=== PATIENT | female | born 1965 | race Caucasian/White ===

== ENCOUNTER 2024-03-03 12:12 | Inpatient (IN) | payer MEDICARE, OTHER ==
[~2024-03-03] VITALS: Ht 162.6 cm; Wt 83.9 kg
[2024-03-03] MEDS ORDERED: MAG HYDROX/AL HYDROX/SIMETH 30 ML UDC PO PRN (23:30)
[2024-03-03] MEDS ORDERED: ACET-2605 PO (23:30)
[2024-03-03] MEDS ORDERED: ACETAMINOPHEN 325 MG TABLET PO PRN (23:30)
[2024-03-03] MEDS ORDERED: DULO30CA2 PO (23:30)
[2024-03-03] MEDS ORDERED: MAGNESIUM HYDROXIDE 30 ML UDC PO PRN (23:30)
[2024-03-03] MEDS ORDERED: ZOLPIDEM TARTRATE 5 MG TABLET PO PRN (23:30)
[2024-03-03] MEDS ORDERED: IBUP200C5 PO (23:39)
[2024-03-03] MEDS ORDERED: OXYB5TAB16 PO (23:41)
[2024-03-03] MEDS ORDERED: PANT20TA17 PO (23:42)
[2024-03-03] MEDS ORDERED: TRAZ-182 PO (23:44)
[2024-03-03] MEDS ORDERED: BUPR100T13 PO (23:45)
[2024-03-04 00:22] VITALS: BP 116/97; TEMP 98.4; O2SAT 97
[2024-03-04] MEDS: BLOOD SUGAR DIAGNOSTIC 1 EACH STRIP IN ONE (00:46)
[2024-03-04 02:34] VITALS: BP 115/70; TEMP 98; O2SAT 98
[2024-03-04 07:10] LABS: BASOPHILS % (AUTO) 0.9 % (0.0-2.0); EOSINOPHILS # (AUTO) 0.1 K/uL (0.0-0.7); EOSINOPHILS % (AUTO) 2.7 % (0.0-6.0); HEMATOCRIT 36 % (33-45); HEMOGLOBIN 12.2 g/dL (11.5-14.8); LYMPHOCYTES # (AUTO) 2.2 K/uL (0.8-4.8); MEAN CORPUSCULAR HEMOGLOBIN 30 PG (26.0-33.0); MEAN CORPUSCULAR HGB CONC 34 g/dl (31.0-36.0); MEAN CORPUSCULAR VOLUME 87 fL (82-100); MONOCYTES # (AUTO) 0.4 K/uL (0.1-1.30); MONOCYTES % (AUTO) 8.3 % (2.0-12.0); NEUTROPHILS # (AUTO) 2.2 K/uL (1.8-8.9); NEUTROPHILS % (AUTO) 44.1 % (43.0-81.0); PLATELET COUNT (AUTO) 276 K/uL (150-450); RED CELL DISTRIBUTION WIDTH 14.1 % (11.5-15.0)
[2024-03-04 07:24] LABS: CALCIUM, SERUM 9.1 mg/dL (8.5-10.1); CREATININE 0.7 mg/dL (0.6-1.3); POTASSIUM 3.2 mmol/L (3.5-5.1)
[2024-03-04] MEDS: PANTOPRAZOLE 40 MG TABLET.DR PO SCH (07:49)
[2024-03-04 08:00] VITALS: BP 128/62; TEMP 98.6; O2SAT 96
[2024-03-04] MEDS: CEPHALEXIN MONOHYDRATE 250 MG CAPSULE PO SCH (09:22)
[2024-03-04] MEDS: OXYBUTYNIN CHLORIDE 5 MG TABLET PO SCH (09:22)
[2024-03-04] MEDS: ESCITALOPRAM OXALATE (10 MG) 10 MG TABLET PO SCH (09:27)
[2024-03-04 16:00] VITALS: BP 121/63; TEMP 98; O2SAT 97
[2024-03-04 20:00] VITALS: BP 124/93; TEMP 98.8; O2SAT 97
[2024-03-04] MEDS: QUETIAPINE FUMARATE 25 MG TABLET PO SCH (21:14)
[2024-03-04] MEDS: POTASSIUM CHLORIDE 20 MEQ TAB.PRT.SR PO ONE (22:07)
[2024-03-05 08:00] VITALS: BP 129/74; TEMP 97.6; O2SAT 98
[2024-03-05 08:02] LABS: CALCIUM, SERUM 8.7 mg/dL (8.5-10.1); CREATININE 0.7 mg/dL (0.6-1.3); POTASSIUM 3.8 mmol/L (3.5-5.1)
[2024-03-05 16:00] VITALS: BP 122/94; TEMP 97.9; O2SAT 98
[2024-03-05 20:28] VITALS: BP 126/79; TEMP 98; O2SAT 97
[2024-03-05] MEDS: QUETIAPINE FUMARATE 25 MG TABLET PO SCH (21:15)
[2024-03-06 08:48] VITALS: BP 138/73; TEMP 97.2; O2SAT 95
[2024-03-06 17:11] VITALS: BP 126/67; TEMP 97.9; O2SAT 95
[2024-03-07 08:00] VITALS: BP 104/86; TEMP 98; O2SAT 96
[2024-03-07] MEDS: ENSURE CLEAR 237 ML LIQUID (MIX BERRY) PO SCH (09:42)
[2024-03-07 16:09] VITALS: BP 125/85; TEMP 97.9; O2SAT 98
[2024-03-07 20:51] VITALS: BP 120/86; TEMP 97.9; O2SAT 97
[2024-03-08 08:00] VITALS: BP 131/89; TEMP 97.8; O2SAT 98
[2024-03-08] MEDS: ESCITALOPRAM OXALATE (10 MG) 10 MG TABLET PO SCH (08:21)
[2024-03-08 16:00] VITALS: BP 131/98; TEMP 98; O2SAT 96
[2024-03-08] MEDS: QUETIAPINE FUMARATE 25 MG TABLET PO SCH (21:40)
[2024-03-09 08:00] VITALS: BP 115/67; TEMP 97.8; O2SAT 97
[2024-03-09] MEDS: LORAZEPAM 1 MG TABLET PO PRN (12:36)
[2024-03-09 16:00] VITALS: BP 121/82; TEMP 98; O2SAT 97
[2024-03-09] MEDS: OLANZAPINE ZYDIS 5 MG TAB.RAPDIS PO ONE (16:24)
[2024-03-09 20:00] VITALS: BP 98/42; TEMP 98.4; O2SAT 97
[2024-03-10 08:25] VITALS: BP 113/69; TEMP 97.4; O2SAT 96
[2024-03-10] MEDS: OLANZAPINE ZYDIS 5 MG TAB.RAPDIS PO SCH (10:36)
[2024-03-10 16:21] VITALS: BP 102/56; TEMP 98; O2SAT 99
[2024-03-10 20:00] VITALS: BP 103/63; TEMP 98.4; O2SAT 97
[2024-03-11 08:00] VITALS: BP 106/70; TEMP 97.6; O2SAT 95
[2024-03-11 16:00] VITALS: BP 125/74; TEMP 98.6; O2SAT 95
[2024-03-11 20:19] VITALS: BP 114/69; TEMP 97.9; O2SAT 96
[2024-03-12 08:00] VITALS: BP 113/80; TEMP 98; O2SAT 94
[2024-03-12 16:00] VITALS: BP 135/73; TEMP 97.9; O2SAT 95
[2024-03-12 20:54] VITALS: BP 130/61; TEMP 98.1; O2SAT 95
[2024-03-13 08:00] VITALS: BP 134/74; TEMP 97.5; O2SAT 100
[2024-03-13 16:00] VITALS: BP 138/71; TEMP 97.5; O2SAT 94
[2024-03-13 20:24] VITALS: BP 111/61; TEMP 97.8; O2SAT 96
[2024-03-14 08:00] VITALS: BP 120/67; TEMP 98.7; O2SAT 99
[2024-03-14] MEDS: ENSURE CLEAR 237 ML LIQUID (MIX BERRY) PO SCH (08:24)
[2024-03-14 16:00] VITALS: BP 108/65; TEMP 98.7; O2SAT 99
[2024-03-14] MEDS: OLANZAPINE ZYDIS 5 MG TAB.RAPDIS PO SCH (16:33)
[2024-03-15 08:00] VITALS: BP 140/55; TEMP 97.7; O2SAT 97
[2024-03-15] MEDS: risperiDONE 1 MG TABLET PO SCH (12:45)
[2024-03-15 16:00] VITALS: BP 133/83; TEMP 97.7; O2SAT 98
[2024-03-15 20:18] VITALS: BP 139/62; TEMP 98.2; O2SAT 98
[2024-03-16 08:00] VITALS: BP 131/91; TEMP 97; O2SAT 98
[2024-03-16 16:00] VITALS: BP 125/88; TEMP 98.4; O2SAT 100
[2024-03-16 20:00] VITALS: BP 131/79; TEMP 98.3; O2SAT 98
[2024-03-17 08:00] VITALS: BP 110/67; TEMP 97.9; O2SAT 98
[2024-03-17] MEDS: risperiDONE 1 MG TABLET PO SCH (16:38)
[2024-03-17 20:00] VITALS: BP 133/89; TEMP 97.8; O2SAT 96
[2024-03-18 08:00] VITALS: BP 126/98; TEMP 97.6; O2SAT 98
[2024-03-18] MEDS ORDERED: RISPERIDONE 0.25 MG TAB.RAPDIS PO SCH (09:00)
[2024-03-18 16:00] VITALS: BP 127/90; TEMP 98.1; O2SAT 97
[2024-03-18] MEDS: RISPERIDONE 1 MG TAB.RAPDIS PO SCH (16:50)
[2024-03-18 20:00] VITALS: BP 120/88; TEMP 97.9; O2SAT 98
[2024-03-19 11:00] VITALS: BP 112/98
[2024-03-19 14:36] LABS: BASOPHILS % (AUTO) 0.8 % (0.0-2.0); EOSINOPHILS # (AUTO) 0.1 K/uL (0.0-0.7); HEMATOCRIT 43 % (33-45); HEMOGLOBIN 13.9 g/dL (11.5-14.8); LYMPHOCYTES # (AUTO) 1.9 K/uL (0.8-4.8); LYMPHOCYTES % (AUTO) 40.1 % (20.0-44.0); MEAN CORPUSCULAR HEMOGLOBIN 29 PG (26.0-33.0); MEAN CORPUSCULAR HGB CONC 33 g/dl (31.0-36.0); MEAN CORPUSCULAR VOLUME 88 fL (82-100); MONOCYTES # (AUTO) 0.4 K/uL (0.1-1.30); MONOCYTES % (AUTO) 8.1 % (2.0-12.0); NEUTROPHILS # (AUTO) 2.4 K/uL (1.8-8.9); PLATELET COUNT (AUTO) 247 K/uL (150-450); RED BLOOD CELL COUNT(AUTO) 4.86 MIL/uL (4.0-5.2); RED CELL DISTRIBUTION WIDTH 14.9 % (11.5-15.0); WHITE BLOOD COUNT (AUTO) 4.8 K/uL (4.3-11.0)
[2024-03-19 14:44] LABS: CALCIUM, SERUM 9.5 mg/dL (8.5-10.1); CREATININE 0.8 mg/dL (0.6-1.3); POTASSIUM 3.4 mmol/L (3.5-5.1)
[2024-03-19 16:00] VITALS: BP 112/94; TEMP 97.5; O2SAT 98
[2024-03-19] MEDS ORDERED: EPINEPHRINE (1:10,000) SYRINGE 1 MG/10 ML DISP.SYRIN IVP ONE (19:09)
== END 2024-03-19 19:10 | disposition short-term general hospital (02) | DRG 885 ==
LOC: GPS 23:05
PROVIDERS: ADMIT Psychiatry & Neurology Psychiatry; ATTEND Nurse Practitioner Acute Care
PROC: 5A12012 Performance of Cardiac Output, Single, Manual (ICD-10-PCS; principal; 2024-03-19)
DX: F25.1 Schizoaffective disorder, depressive type (principal); N39.0 Urinary tract infection, site not specified; F03.93 Unspecified dementia, unspecified severity, with mood disturbance; F33.3 Major depressive disorder, recurrent, severe with psychotic symptoms; F29 Unspecified psychosis not due to a substance or known physiological condition; K21.9 Gastro-esophageal reflux disease without esophagitis; E66.9 Obesity, unspecified; E78.5 Hyperlipidemia, unspecified; E87.6 Hypokalemia; F41.9 Anxiety disorder, unspecified; N32.81 Overactive bladder; Z73.6 Limitation of activities due to disability; F39 Unspecified mood [affective] disorder; B96.89 Other specified bacterial agents as the cause of diseases classified elsewhere; M19.90 Unspecified osteoarthritis, unspecified site; Z68.31 Body mass index [BMI] 31.0-31.9, adult
CPT/HCPCS: 36415; 80048-TC; 80061-TC; 82962-TC; 85025-TC; 87081-TC; 97112-TC; 97116-TC; 97530-TC; J0171; J3475; J3490

== ENCOUNTER 2024-03-19 19:13 | Inpatient (IN) | payer MEDICARE, OTHER ==
[~2024-03-19 19:13] MED LIST: ACET-2605 PO; BUPR100T13 PO; DULO30CA2 PO; IBUP200C5 PO; OXYB5TAB16 PO; PANT20TA17 PO; TRAZ-182 PO
[2024-03-19] MEDS ORDERED: NOREPINEPHRINE 32 MG in IV NS 0.9% 218 ML IV PRN (19:30)
[2024-03-19] MEDS ORDERED: CEFEPIME 1 GM in IV D5W 50 ML IV SCH (19:30)
[2024-03-19] MEDS ORDERED: MAGNESIUM HYDROXIDE 30 ML UDC PO PRN (19:30)
[2024-03-19] MEDS ORDERED: MAG HYDROX/AL HYDROX/SIMETH 30 ML UDC PO PRN (19:30)
[2024-03-19] MEDS ORDERED: ACETAMINOPHEN 325 MG TABLET PO PRN (19:30)
[2024-03-19] MEDS ORDERED: IV NS 0.9% 1,000 ML IV PRN (19:30)
[2024-03-19] MEDS ORDERED: PHENYLEPHRINE 100 MG in IV NS 0.9% 240 ML IV PRN (19:30)
[2024-03-19] MEDS ORDERED: ONDANSETRON HCL/PF 4 MG/2 ML VIAL IVP PRN (19:30)
[2024-03-19] MEDS ORDERED: EPINEPHRINE (1:10,000) SYRINGE 1 MG/10 ML DISP.SYRIN IVP ONE ×2 (23:30)
== END 2024-03-19 23:31 | DRG 189 ==
LOC: ICU 19:13
PROVIDERS: ADMIT Nurse Practitioner Acute Care; ATTEND Nurse Practitioner Acute Care
PROC: 5A12012 Performance of Cardiac Output, Single, Manual (ICD-10-PCS; principal; 2024-03-19)
DX: J96.01 Acute respiratory failure with hypoxia (principal); N39.0 Urinary tract infection, site not specified; F25.0 Schizoaffective disorder, bipolar type; E66.9 Obesity, unspecified; E78.5 Hyperlipidemia, unspecified; I46.9 Cardiac arrest, cause unspecified; E87.6 Hypokalemia; F39 Unspecified mood [affective] disorder; F41.9 Anxiety disorder, unspecified; M19.90 Unspecified osteoarthritis, unspecified site; Z68.31 Body mass index [BMI] 31.0-31.9, adult; B96.89 Other specified bacterial agents as the cause of diseases classified elsewhere
CPT/HCPCS: A4223; G0378; J0171; J0692; J3490; J7030; J7060